=== PATIENT | male | born 1965 | race Caucasian/White ===

== ENCOUNTER 2016-10-20 21:49 | Emergency (ER) | payer BC ==
[~2016-10-20] VITALS: Ht 182.9 cm; Wt 86.6 kg
[2016-10-20 21:57] VITALS: BP 144/88
[2016-10-20] MEDS ORDERED: FLUORESCEIN OPHTHALMIC 1 MG STRIP EACHEYE ONE (22:30)
[2016-10-20] MEDS ORDERED: PROPARACAINE OPHTH 0.5%, 15ML EACHEYE ONE (22:30)
[2016-10-20] MEDS ORDERED: FLUORESCEIN OPHTHALMIC 1 MG STRIP ONE (22:36)
[2016-10-20] MEDS ORDERED: PROPARACAINE OPHTH 0.5%, 15ML ONE (22:36)
== END 2016-10-21 00:14 | disposition home or self-care (01) ==
LOC: ED 22:31
DX: H10.021 Other mucopurulent conjunctivitis, right eye (principal); H16.8 Other keratitis; S05.01XA Injury of conjunctiva and corneal abrasion without foreign body, right eye, initial encounter; X58.XXXA Exposure to other specified factors, initial encounter; Y93.89 Activity, other specified; Y99.8 Other external cause status; Y92.89 Other specified places as the place of occurrence of the external cause
CPT/HCPCS: 99283

== ENCOUNTER 2018-10-23 22:03 | Emergency (ER) | payer BC ==
[~2018-10-23] VITALS: Ht 182.9 cm; Wt 92.9 kg
--- NOTE | 2018-10-24 01:12 | NUR ---
RONNY RN: PT HAD FACIAL SURGERY TODAY. PT HAS BILATERAL BRUSING TO EYES AND SWELLING. PT SAID AT 1700 LAST NIGHT HE STARTED HAVING CHEST TIGHTNESS THAT COMES AND GOES. PT ALSO FELT HIS HEART BEATING RAPIDLY. VS STABLE. 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 SINUS TACH NOTED. PT SEEN BY DR KAY. REPORT GIVEN TO SUZANNE NORRIS
[2018-10-24 01:33] LABS: BASOPHILS # (AUTO) 0.04 x10^3/uL (0-0.1); BASOPHILS % (AUTO) 0 % (0-1); EOSINOPHILS % (AUTO) 0 % (1-7); LYMPHOCYTES # (AUTO) 0.89 x10^3/uL (1-3.4); LYMPHOCYTES % (AUTO) 6 % (22-44); MD NO; MEAN CORPUSCULAR HEMOGLOBIN 31.4 pg (27.5-34.5); MEAN CORPUSCULAR HGB CONC 33.9 g/dL (33.2-36.2); MEAN CORPUSCULAR VOLUME 92.6 fL (81-97); MEAN PLATELET VOLUME 7.3 fL (7.4-10.4); MONOCYTES % (AUTO) 1 % (2-9); NEUTROPHILS # (AUTO) 14.36 x10^3/uL (1.8-6.8); NEUTROPHILS % (AUTO) 93 % (42-75); PLATELET COUNT 296 x10^3/uL (130-400)
[2018-10-24] MEDS ORDERED: METH4TAB7 PO (01:37)
[2018-10-24] MEDS ORDERED: CEPH-376 PO (01:37)
--- NOTE | 2018-10-24 01:38 | NUR ---
pt resting on [place], monitors in place, call light within reach. awaiting lab and xray results
[2018-10-24 01:39] LABS: ALANINE AMINOTRANSFERASE 30 U/L (12-78); ANION GAP 10 mmol/L (5-15); CALCIUM 9.3 mg/dL (8.5-10.1); CHLORIDE 104 mmol/L (98-107)
[2018-10-24 01:41] LABS: D-DIMER 0.22 ug/mlFEU (0.00-0.52); INTERNATIONAL NORMALIZED RATIO 0.98 (0.93-1.1); PROTHROMBIN TIME 10.3 Seconds (9.6-11.5)
[2018-10-24 01:44] LABS: ALKALINE PHOSPHATASE 55 U/L (45-117); BILIRUBIN,TOTAL 0.4 mg/dL (0.2-1.0); TOTAL PROTEIN 7.8 g/dL (6.4-8.2); TROPONIN I < 0.015 ng/mL (0.000-0.045)
[2018-10-24] MEDS ORDERED: LABETALOL 5MG/ML, 20ML IVPush ONE (02:30)
--- NOTE | 2018-10-24 02:59 | NUR ---
pt medicated per mar
[2018-10-24] MEDS ORDERED: LABETALOL 100 MG TABLET PO ONE (03:00)
[2018-10-24 03:39] VITALS: BP 128/76
[2018-10-25] MEDS ORDERED: NEOM1AMP OP (18:07)
== END 2018-10-24 04:01 | disposition home or self-care (01) ==
LOC: ED 23:59
DX: R07.89 Other chest pain (principal); R00.0 Tachycardia, unspecified; I10 Essential (primary) hypertension
CPT/HCPCS: 36415; 71045; 80053; 84484; 85025; 85379; 85610; 85730; 93005; 99284

== ENCOUNTER 2018-10-25 17:08 | Emergency (ER) | payer BC ==
[~2018-10-25] VITALS: Ht 182.9 cm; Wt 89.4 kg
[~2018-10-25 17:08] MED LIST: CEPH-376 PO; METH4TAB7 PO
--- NOTE | 2018-10-25 17:29 | NUR ---
market specialist: PT WALKED BACK FROM LOBBY TO ROOM AT THIS TIME. NAD NOTED.
[2018-10-25 17:54] LABS: BASOPHILS # (AUTO) 0.03 x10^3/uL (0-0.1); BASOPHILS % (AUTO) 0 % (0-1); EOSINOPHILS # (AUTO) 0.01 x10^3/uL (0-0.4); EOSINOPHILS % (AUTO) 0 % (1-7); LYMPHOCYTES # (AUTO) 1.18 x10^3/uL (1-3.4); LYMPHOCYTES % (AUTO) 8 % (22-44); MD NO; MEAN CORPUSCULAR HEMOGLOBIN 30.9 pg (27.5-34.5); MEAN CORPUSCULAR VOLUME 93.4 fL (81-97); MEAN PLATELET VOLUME 7.3 fL (7.4-10.4); MONOCYTES # (AUTO) 0.35 x10^3/uL (0.2-0.8); MONOCYTES % (AUTO) 2 % (2-9); NEUTROPHILS # (AUTO) 14.07 x10^3/uL (1.8-6.8); NEUTROPHILS % (AUTO) 90 % (42-75); PLATELET COUNT 305 x10^3/uL (130-400); RED BLOOD COUNT 5.47 x10^6/uL (4.38-5.82); RED CELL DISTRIBUTION WIDTH 13.4 % (9.4-14.8)
--- NOTE | 2018-10-25 17:54 | NUR ---
PRESENTS WITH SUBSTERNAL CHEST PAIN/SOB, HTN. REPORTS NO CHRONIC HX OF SUCH. HOWEVER, SEEN HERE FOR SAME 2 DAYS AGO IN ROOM 91, 138/89, 14, 96% HAD COSMETIC EYE SURGERY THIS LAST SUNDAY PLACED ON CRAFT SUPERINTENDENT
[2018-10-25 18:02] LABS: ALBUMIN 4.3 g/dL (3.4-5.0); ANION GAP 8 mmol/L (5-15); CALCIUM 9.3 mg/dL (8.5-10.1); CHLORIDE 102 mmol/L (98-107)
[2018-10-25 18:06] LABS: TROPONIN I < 0.015 ng/mL (0.000-0.045)
[2018-10-25] MEDS ORDERED: NEOM1AMP OP (18:07)
[2018-10-25] MEDS ORDERED: LORazepam 2 MG/ML, 1ML ONE (18:28)
[2018-10-25] MEDS ORDERED: SODIUM CHLORIDE 0.9% 1,000ML IVBOLUS ONE (18:30)
[2018-10-25] MEDS ORDERED: SODIUM CHLORIDE FLUSH 10ML SYR IVF ONE (18:30)
[2018-10-25] MEDS ORDERED: LORazepam 2 MG/ML, 1ML IVPush ONE (18:30)
--- NOTE | 2018-10-25 18:46 | NUR ---
PT MEDICATED ORDERED. PT ON MONITOR. FAMILY AT BEDSIDE. WAITING FOR LAB RESULTS.
--- NOTE | 2018-10-25 18:56 | NUR ---
CHART UP FOR MD RECHECK. PT AWARE.
[2018-10-25 19:49] VITALS: BP 118/73
== END 2018-10-25 19:52 | disposition home or self-care (01) ==
LOC: ED 18:41
DX: T81.89XA Other complications of procedures, not elsewhere classified, initial encounter (principal); E86.0 Dehydration; F41.9 Anxiety disorder, unspecified
CPT/HCPCS: 36415; 71046; 80048; 82040; 84484; 85025; 93005; 96361; 96374; 99284; J2060; J7030